=== PATIENT | female | born 1955 | race Caucasian/White ===

== ENCOUNTER 2019-08-04 13:34 | Inpatient (IN) | payer BC, MEDICAID ==
[~2019-08-04] VITALS: Ht 165.1 cm; Wt 83.7 kg
[2019-08-04 14:04] LABS: BASOPHILS % (AUTO) 0.7 % (0.0-2.0); HEMATOCRIT 43.2 % (36-46); HEMOGLOBIN 14.3 g/dL (12.0-16.0); LYMPHOCYTES # (AUTO) 3.2 K/uL (1.0-4.8); LYMPHOCYTES % (AUTO) 39.9 % (22.0-44.0); MEAN CORPUSCULAR HGB CONC 33.1 G/dL (31.0-37.0); MEAN CORPUSCULAR VOLUME 91 fL (80-100); MONOCYTES # (AUTO) 0.6 K/uL (0.1-1.0); MONOCYTES % (AUTO) 7.8 % (2.0-9.0); NEUTROPHILS % (AUTO) 49.6 % (40.0-70.0); PLATELET COUNT (AUTO) 238 K/uL (150-450); RED BLOOD CELL COUNT(AUTO) 4.76 MIL/uL (4.00-5.20)
[2019-08-04 14:30] LABS: ANION GAP 7 mmol/L (8-16); CALCIUM, TOTAL 8.8 mg/dL (8.8-10.5); CARBON DIOXIDE 28 mmol/L (22-29); CHLORIDE 102 mmol/L (98-107); CREATININE 0.68 mg/dL (0.60-1.30); GLOMERULAR FILTR. RATE CALC > 60 mL/min (>60); GLUCOSE,RANDOM 98 mg/dL (70-110); SODIUM SERUM 137 mmol/L (136-145); UREA NITROGEN, BLOOD 21 mg/dL (7-18)
[2019-08-04 14:37] LABS: ALANINE AMINOTRANSFERASE 24 U/L (12-78); ALBUMIN 3.7 g/dL (3.4-5.0); ALKALINE PHOSPHATASE 96 U/L (46-116); ASPARTATE AMINOTRANSFERASE 30 U/L (15-37); BILIRUBIN,TOTAL 0.3 mg/dL (0.1-1.0); TOTAL PROTEIN, SERUM 7.2 g/dL (6.4-8.2)
[2019-08-04] MEDS ORDERED: METF-960 PO (14:37)
[2019-08-04] MEDS ORDERED: ALBU8HFA IH (14:37)
[2019-08-04] MEDS ORDERED: HYDR25TA PO (14:37)
[2019-08-04] MEDS ORDERED: LOSA25TA41 PO (14:37)
[2019-08-04] MEDS ORDERED: LEVO50 PO (14:37)
[2019-08-04] MEDS ORDERED: METO25XL PO (14:37)
[2019-08-04] MEDS ORDERED: BECL10.62 IH (14:37)
[2019-08-04] MEDS ORDERED: GABA-531 PO (14:37)
[2019-08-04] MEDS ORDERED: LORA10TA7 PO (14:37)
[2019-08-04] MEDS ORDERED: SIMV-260 PO (14:37)
[2019-08-04 14:39] LABS: B-TYPE NATRIURETIC PEPTIDE 13 pg/mL (0-100)
[2019-08-04] MEDS ORDERED: ASPIRIN 81 MG CHEWABLE TABLET PO ONE (15:15)
[2019-08-04 15:18] LABS: CREATINE KINASE, TOTAL ONLY 185 U/L (26-192)
[2019-08-04] MEDS ORDERED: NITROGLYCERIN 2% (1 GM=INCH) PACKET TP ONE (16:30)
[2019-08-04] MEDS ORDERED: HEPARIN SODIUM 25000 UNITS/D5W 250 ML IV PRN (16:37)
[2019-08-04] MEDS ORDERED: HEPARIN SODIUM,PORCINE 5,000 UNITS/ML VIAL IVP ONE ×2 (16:45→17:00)
[2019-08-04] MEDS ORDERED: ACETAMINOPHEN 325 MG TABLET PO PRN (16:45)
[2019-08-04] MEDS ORDERED: 0.9% SODIUM CHLORIDE 10 ML SYRINGE IVP PRN (16:45)
[2019-08-04] MEDS ORDERED: SIMVASTATIN 10 MG TABLET PO ONE (16:45)
[2019-08-04] MEDS ORDERED: HEPARIN SODIUM,PORCINE 5,000 UNITS/ML VIAL IVP PRN ×2 (16:45)
[2019-08-04] MEDS ORDERED: ONDANSETRON HCL 4 MG/2 ML VIAL IVP PRN (16:45)
[2019-08-04] MEDS ORDERED: METOPROLOL TARTRATE 50 MG TABLET PO ONE (16:45)
[2019-08-04 16:48] LABS: PROTHROMBIN TIME 10.3 SEC (9.4-11.6)
[2019-08-04 20:00] VITALS: BP 150/81
[2019-08-05] VITALS (15 sets, daily range): BP systolic 120–159; BP diastolic 50–91
[2019-08-05] MEDS ORDERED: ACETAMINOPHEN 325 MG TABLET PO PRN (03:00)
[2019-08-05] MEDS ORDERED: DEXTROSE 50%-WATER 25 GM/50 ML SYRINGE IVP PRN (03:00)
[2019-08-05] MEDS ORDERED: 0.9% SODIUM CHLORIDE 10 ML SYRINGE IVP PRN (03:00)
[2019-08-05] MEDS ORDERED: MAGNESIUM HYDROXIDE SUSPENSION 30 ML UDCUP PO PRN (03:00)
[2019-08-05] MEDS ORDERED: INSULIN LISPRO 100 UNITS/ML SQ PRN (03:00)
[2019-08-05] MEDS ORDERED: ONDANSETRON HCL 4 MG/2 ML VIAL IVP PRN (03:00)
[2019-08-05] MEDS ORDERED: OxyCODONE HCL/ACETAMINOPHEN 5-325 MG TABLET PO PRN ×2 (03:00)
[2019-08-05] MEDS ORDERED: HEPARIN SODIUM,PORCINE 5,000 UNITS/ML VIAL IVP PRN ×2 (04:00)
[2019-08-05] MEDS ORDERED: HEPARIN SODIUM 25000 UNITS/D5W 250 ML IV PRN (04:00)
[2019-08-05] MEDS: INSULIN LISPRO 100 UNITS/ML SQ SCH ×3 (06:30→17:00)
[2019-08-05 06:44] LABS: GLUCOSE,POINT OF CARE 113 MG/DL (70-110)
[2019-08-05] MEDS: LEVOTHYROXINE SODIUM 50 MCG TABLET PO SCH (06:46)
[2019-08-05 07:24] LABS: BASOPHILS % (AUTO) 0.7 % (0.0-2.0); EOSINOPHILS % (AUTO) 0.6 % (1.0-6.0); HEMATOCRIT 42.9 % (36-46); HEMOGLOBIN 14.4 g/dL (12.0-16.0); LYMPHOCYTES # (AUTO) 2.9 K/uL (1.0-4.8); LYMPHOCYTES % (AUTO) 36.4 % (22.0-44.0); MEAN CORPUSCULAR HEMOGLOBIN 30.3 pg (26.0-34.0); MEAN CORPUSCULAR HGB CONC 33.7 G/dL (31.0-37.0); MEAN CORPUSCULAR VOLUME 90 fL (80-100); MONOCYTES # (AUTO) 0.4 K/uL (0.1-1.0); MONOCYTES % (AUTO) 4.9 % (2.0-9.0); NEUTROPHILS # (AUTO) 4.6 K/uL (1.8-7.7); NEUTROPHILS % (AUTO) 57.4 % (40.0-70.0); PLATELET COUNT (AUTO) 238 K/uL (150-450); RED BLOOD CELL COUNT(AUTO) 4.77 MIL/uL (4.00-5.20); RED CELL DISTRIBUTION WIDTH 12.9 % (11.5-14.5)
[2019-08-05 07:27] LABS: ANION GAP 8 mmol/L (8-16); CARBON DIOXIDE 28 mmol/L (22-29); CHLORIDE 102 mmol/L (98-107); CREATININE 0.68 mg/dL (0.60-1.30); GLOMERULAR FILTR. RATE CALC > 60 mL/min (>60); GLUCOSE,RANDOM 121 mg/dL (70-110); POTASSIUM 3.9 mmol/L (3.5-5.1); SODIUM SERUM 138 mmol/L (136-145); UREA NITROGEN, BLOOD 15 mg/dL (7-18)
[2019-08-05] MEDS: DOCUSATE SODIUM 100 MG CAPSULE PO SCH ×2 (09:00→20:07)
[2019-08-05] MEDS: METOPROLOL SUCCINATE 25 MG ER TABLET PO SCH (12:23)
[2019-08-05] MEDS: ATORVASTATIN CALCIUM 40 MG TABLET PO SCH (12:23)
[2019-08-05] MEDS: LOSARTAN POTASSIUM 25 MG TABLET PO SCH ×2 (12:24→20:07)
[2019-08-05 14:15] LABS: GLUCOSE,POINT OF CARE 93 MG/DL (70-110)
[2019-08-05] MEDS ORDERED: FentaNYL CITRATE-PF 100 MCG/2 ML VIAL IVP ONE ×2 (15:00→16:15)
[2019-08-05] MEDS ORDERED: MIDAZOLAM HCL 2 MG/2 ML VIAL IVP ONE ×2 (15:00→16:15)
[2019-08-05] MEDS ORDERED: BENZOCAINE 20% 50 MCG/SPRAY 57 GM TP ONE (15:00)
[2019-08-05] MEDS ORDERED: HEPARIN SODIUM 1000 UNITS/NS 1,000 ML ONE (15:01)
[2019-08-05] MEDS ORDERED: IOHEXOL 300 MG/ML 150 ML VIAL ONE (15:01)
[2019-08-05] MEDS ORDERED: SODIUM BICARBONATE 50 MEQ/50 ML VIAL ONE (15:01)
[2019-08-05] MEDS ORDERED: LIDOCAINE/PF 1% 30 ML VIAL ONE (15:01)
[2019-08-05] MEDS ORDERED: MIDAZOLAM HCL 2 MG/2 ML VIAL ONE (15:55)
[2019-08-05] MEDS ORDERED: FentaNYL CITRATE-PF 100 MCG/2 ML VIAL ONE (15:55)
[2019-08-05] MEDS ORDERED: IOHEXOL 300 MG/ML 100 ML VIAL ONE (15:57)
[2019-08-05] MEDS ORDERED: SODIUM CHLORIDE 0.9% 500 ML IV ONE (16:14)
[2019-08-05] MEDS ORDERED: HEPARIN SODIUM 2,000 UNITS in HEPARIN SODIUM 1000 UNITS/NS 1,000 ML IARTER ONE (16:14)
[2019-08-05] MEDS ORDERED: IOHEXOL 300 MG/ML 100 ML VIAL IARTER ONE (16:15)
[2019-08-05] MEDS ORDERED: LIDOCAINE 1% 30 ML/SOD BICARB 8.4% 4 ML SQ ONE (16:15)
[2019-08-05 19:46] LABS: GLUCOSE,POINT OF CARE 93 MG/DL (70-110)
[2019-08-05] MEDS ORDERED: INSULIN GLARGINE,HUM.REC.ANLOG 100 UNITS/ML SQ SCH (21:00)
[2019-08-05] MEDS ORDERED: SIMVASTATIN 20 MG TABLET PO SCH (21:00)
[2019-08-06 04:51] VITALS: BP 130/66
[2019-08-06 05:27] LABS: GLUCOSE,POINT OF CARE 134 MG/DL (70-110)
[2019-08-06 07:04] LABS: BASOPHILS % (AUTO) 0.6 % (0.0-2.0); HEMATOCRIT 43.3 % (36-46); HEMOGLOBIN 14.5 g/dL (12.0-16.0); LYMPHOCYTES # (AUTO) 2.9 K/uL (1.0-4.8); LYMPHOCYTES % (AUTO) 44.1 % (22.0-44.0); MEAN CORPUSCULAR HEMOGLOBIN 30.1 pg (26.0-34.0); MEAN CORPUSCULAR HGB CONC 33.5 G/dL (31.0-37.0); MEAN CORPUSCULAR VOLUME 90 fL (80-100); MONOCYTES # (AUTO) 0.6 K/uL (0.1-1.0); NEUTROPHILS % (AUTO) 45.3 % (40.0-70.0); PLATELET COUNT (AUTO) 238 K/uL (150-450); RED BLOOD CELL COUNT(AUTO) 4.81 MIL/uL (4.00-5.20); RED CELL DISTRIBUTION WIDTH 13.1 % (11.5-14.5)
[2019-08-06] MEDS: LEVOTHYROXINE SODIUM 50 MCG TABLET PO SCH (07:14)
[2019-08-06] MEDS: INSULIN LISPRO 100 UNITS/ML SQ SCH ×2 (07:15→11:30)
[2019-08-06 07:24] LABS: ANION GAP 4 mmol/L (8-16); CALCIUM, TOTAL 8.8 mg/dL (8.8-10.5); CARBON DIOXIDE 26 mmol/L (22-29); CHLORIDE 104 mmol/L (98-107); CREATININE 0.71 mg/dL (0.60-1.30); GLOMERULAR FILTR. RATE CALC > 60 mL/min (>60); GLUCOSE,RANDOM 107 mg/dL (70-110); POTASSIUM 3.6 mmol/L (3.5-5.1); SODIUM SERUM 134 mmol/L (136-145); UREA NITROGEN, BLOOD 19 mg/dL (7-18)
[2019-08-06 07:56] VITALS: BP 135/59
[2019-08-06] MEDS: DOCUSATE SODIUM 100 MG CAPSULE PO SCH (09:12)
[2019-08-06] MEDS: ATORVASTATIN CALCIUM 40 MG TABLET PO SCH (09:12)
[2019-08-06] MEDS: METOPROLOL SUCCINATE 25 MG ER TABLET PO SCH (09:12)
[2019-08-06] MEDS: LOSARTAN POTASSIUM 25 MG TABLET PO SCH (09:12)
[2019-08-06 10:59] VITALS: BP 123/45
[2019-08-06 11:18] LABS: GLUCOMETER DEV NAME(LOC) 5S.2A; GLUCOSE,POINT OF CARE 79 MG/DL (70-110)
[2019-08-06 11:28] LABS: GLUCOMETER DEV NAME(LOC) 5N.1; GLUCOSE,POINT OF CARE 142 MG/DL (70-110)
== END 2019-08-06 13:10 | disposition home or self-care (01) | DRG 282 ==
LOC: EMS 13:39 → ICU 18:03 → 5S 08-05 23:20
PROVIDERS: ADMIT Internal Medicine; ATTEND Internal Medicine
PROC: 4A023N7 Measurement of Cardiac Sampling and Pressure, Left Heart, Percutaneous Approach (ICD-10-PCS; principal; 2019-08-05)
PROC: B2111ZZ Fluoroscopy of Multiple Coronary Arteries using Low Osmolar Contrast (ICD-10-PCS; 2019-08-05)
DX: I21.4 Non-ST elevation (NSTEMI) myocardial infarction (principal); E78.00 Pure hypercholesterolemia, unspecified; I10 Essential (primary) hypertension; E03.9 Hypothyroidism, unspecified; E11.9 Type 2 diabetes mellitus without complications; J44.9 Chronic obstructive pulmonary disease, unspecified; I25.10 Atherosclerotic heart disease of native coronary artery without angina pectoris; E66.9 Obesity, unspecified; E78.5 Hyperlipidemia, unspecified; Z88.8 Allergy status to other drugs, medicaments and biological substances; Z83.49 Family history of other endocrine, nutritional and metabolic diseases; Z83.3 Family history of diabetes mellitus; Z68.30 Body mass index [BMI] 30.0-30.9, adult; Z95.2 Presence of prosthetic heart valve; Z79.84 Long term (current) use of oral hypoglycemic drugs; Z79.899 Other long term (current) drug therapy; Z82.49 Family history of ischemic heart disease and other diseases of the circulatory system
CPT/HCPCS: 87081; 93005; 93306; 96365; G0378; J1644; J1815; J2250; J2405; J3010; J3490; Q9967